=== PATIENT | male | born 1995 | race Caucasian/White ===

== ENCOUNTER 2017-08-18 00:12 | Emergency (ER) | payer SELFPAY ==
--- NOTE | 2017-08-18 00:16 | ER Report ---
History and Physical Time Seen By MD: 00:16 HPI/ROS CHIEF COMPLAINT: alcohol intoxication HISTORY OF PRESENT ILLNESS: This is a 21 year old male. He has been drinking heavily tonight. He was unconscious and friends had not seen him like this before so brought him to the ER. He was not aware he was coming. He does awake with verbal stimuli and is able to communicate with me. He falls back to sleep easily, but also arouses easily. He denies any other problems, no recent illnesses, no pain. His friend was worried that someone may have slipped him something. He is nauseated and vomiting occasionally as well. Allergies: Coded Allergies: No Known Drug Allergies (Unverified , 08/18/17) Home Meds No Active Prescriptions or Reported Meds Reviewed Nurses Notes: Yes Hx Substance Use Disorder: No Constitutional Vital Sign - Last 24 Hours 08/18/17 00:17 Temp 98.5 Pulse 55 Resp 14 B/P (MAP) 114/67 Pulse Ox 95 O2 Delivery Room Air Physical Exam General Appearance: Intoxicated, but arouses easily with verbal. Able to communicate and is alert and orient x3 once redirected once. Eyes: Pupils equal and round, has some scleral injection. Reactive to light, extraocular movements are intact. ENT: Normal oral mucosa. Moist mucous membranes. Tympanic membranes are normal. Neck: Neck is supple and non tender. Respiratory: Chest is non tender, lungs are clear to auscultation. Cardiac: regular rate and rhythm Gastrointestinal: Abdomen is soft and non tender, no masses, bowel sounds normal. Musculoskeletal: Extremities have full range of motion. Skin: No rashes or lesions. DIFFERENTIAL DIAGNOSIS: After history and physical exam differential diagnosis was considered for intoxicated with concern of friends for decreased mental status. Medical Decision Making Data Points Result Diagram: 08/18/17 0025 08/18/17 0025 Laboratory Hematology Test 08/18/17 00:25 Red Blood Count 5.07 M/uL (4.00-5.60) Mean Corpuscular Volume 88.9 fL (80.0-96.0) Mean Corpuscular Hemoglobin 30.2 pg (26.0-33.0) Mean Corpuscular Hemoglobin Concent 34.0 g/dL (32.0-36.0) Red Cell Distribution Width 12.9 % (11.5-14.5) Mean Platelet Volume 8.1 fL (7.2-11.1) Neutrophils (%) (Auto) 64.4 % (39.4-72.5) Lymphocytes (%) (Auto) 26.0 % (17.6-49.6) Monocytes (%) (Auto) 5.6 % (4.1-12.4) Eosinophils (%) (Auto) 3.3 % (0.4-6.7) Basophils (%) (Auto) 0.7 % (0.3-1.4) Nucleated RBC Relative Count (auto) 0.0 /100WBC Neutrophils # (Auto) 5.1 K/uL (2.0-7.4) Lymphocytes # (Auto) 2.1 K/uL (1.3-3.6) Monocytes # (Auto) 0.4 K/uL (0.3-1.0) Eosinophils # (Auto) 0.3 K/uL (0.0-0.5) Basophils # (Auto) 0.1 K/uL (0.0-0.1) Nucleated RBC Absolute Count (auto) 0.00 K/uL Sodium Level 144 mmol/L (137-145) Potassium Level 3.9 mmol/L (3.5-5.0) Chloride Level 103 mmol/L (98-107) Carbon Dioxide Level 23 mmol/L (22-30) Blood Urea Nitrogen 19 mg/dl (9-21) Creatinine 1.10 mg/dl (0.66-1.25) Glomerular Filtration Rate Calc > 60.0 Random Glucose 110 mg/dl (75-110) Calcium Level 8.6 mg/dl (8.4-10.2) Total Bilirubin 0.3 mg/dl (0.2-1.3) Aspartate Amino Transf (AST/SGOT) 25 U/L (0-35) Alanine Aminotransferase (ALT/SGPT) 34 U/L (0-56) Alkaline Phosphatase 88 U/L (0-126) Total Protein 8.1 gm/dl (6.3-8.2) Albumin 4.6 g/dl (3.5-5.0) Serum Alcohol 213 mg/dl Chemistry Test 08/18/17 00:25 White Blood Count 7.9 k/uL (4.5-11.0) Red Blood Count 5.07 M/uL (4.00-5.60) Hemoglobin 15.3 g/dL (14.0-18.0) Hematocrit 45.0 % (42.0-52.0) Mean Corpuscular Volume 88.9 fL (80.0-96.0) Mean Corpuscular Hemoglobin 30.2 pg (26.0-33.0) Mean Corpuscular Hemoglobin Concent 34.0 g/dL (32.0-36.0) Red Cell Distribution Width 12.9 % (11.5-14.5) Platelet Count 170 K/uL (150-450) Mean Platelet Volume 8.1 fL (7.2-11.1) Neutrophils (%) (Auto) 64.4 % (39.4-72.5) Lymphocytes (%) (Auto) 26.0 % (17.6-49.6) Monocytes (%) (Auto) 5.6 % (4.1-12.4) Eosinophils (%) (Auto) 3.3 % (0.4-6.7) Basophils (%) (Auto) 0.7 % (0.3-1.4) Nucleated RBC Relative Count (auto) 0.0 /100WBC Neutrophils # (Auto) 5.1 K/uL (2.0-7.4) Lymphocytes # (Auto) 2.1 K/uL (1.3-3.6) Monocytes # (Auto) 0.4 K/uL (0.3-1.0) Eosinophils # (Auto) 0.3 K/uL (0.0-0.5) Basophils # (Auto) 0.1 K/uL (0.0-0.1) Nucleated RBC Absolute Count (auto) 0.00 K/uL Glomerular Filtration Rate Calc > 60.0 Calcium Level 8.6 mg/dl (8.4-10.2) Total Bilirubin 0.3 mg/dl (0.2-1.3) Aspartate Amino Transf (AST/SGOT) 25 U/L (0-35) Alanine Aminotransferase (ALT/SGPT) 34 U/L (0-56) Alkaline Phosphatase 88 U/L (0-126) Total Protein 8.1 gm/dl (6.3-8.2) Albumin 4.6 g/dl (3.5-5.0) Serum Alcohol 213 mg/dl Toxicology Test 08/18/17 00:25 Serum Alcohol 213 mg/dl ED Course/Re-evaluation Clinical Indication for ER IV: Hydration, IV Access ED Course Labs unremarkable other than the elevated alcohol level. Given a liter of normal saline IV and Zofran 4mg IV x2 doses. He is better. Discussed with friends regarding testing for other drugs, but did not recommend as would not change treatment at this time. Decision to Disposition Date: Aug 18, 2017 Decision to Disposition Time: 00:45 Depart Departure Latest Vital Signs Vital Signs Date Time Temp Pulse Resp B/P (MAP) Pulse Ox O2 Delivery O2 Flow Rate FiO2 08/18/17 00:17 98.5 55 14 114/67 95 Room Air Impression: Primary Impression: Alcohol intoxication Condition: Improved Disposition: HOME OR SELF-CARE (Home with friends) New Scripts No Active Prescriptions or Reported Meds Patient Instructions: Alcohol Intoxication (ED) Additional Instructions: Increase fluid intake (not alcohol). Take Zofran 4mg, one every 6 hours as needed for nausea. Problem Qualifiers Primary Impression: Alcohol intoxication Complication of substance-induced condition: uncomplicated Qualified Codes: F10.920 - Alcohol use, unspecified with intoxication, uncomplicated KAMILAH ORTIZ MD Aug 18, 2017 00:16
[2017-08-18] MEDS ORDERED: NS(*) 0.9% 1000 ML BAG 1,000 ML IV ONE (00:25)
[2017-08-18] MEDS ORDERED: ONDANSETRON 4 MG/2 ML VIAL IVP ONE ×2 (00:25→00:50)
[2017-08-18 00:35] LABS: PLATELET COUNT, AUTOMATED 170 K/uL (150-450)
[2017-08-18] MEDS ORDERED: ONDANSETRON 4 MG ODT TH SL ONE (00:50)
[2017-08-18 01:28] VITALS: BP 116/78
== END 2017-08-18 01:31 | disposition home or self-care (01) ==
LOC: ER 00:28
DX: F10.920 Alcohol use, unspecified with intoxication, uncomplicated (principal)
CPT/HCPCS: 80320; 85025; 96361; 96374; 99284; J2405; J7030; S0119; 82040; 82247; 82310; 82374; 82435; 82565; 82947; 84075; 84132; 84155; 84295; 84450; 84460; 84520; 96375